=== PATIENT | male | born 1990 | race Caucasian/White ===

== ENCOUNTER 2016-08-07 20:49 | Emergency (ER) | payer OTHER ==
[2016-08-07 22:12] LABS: SPECIFIC GRAVITY 1.025 (1.001-1.030); URINE BILIRUBIN NEGATIVE (NEGATIVE); URINE BLOOD NEGATIVE (NEGATIVE); URINE GLUCOSE (UA) NEGATIVE (NEGATIVE); URINE LEUKOCYTE ESTERASE NEGATIVE (NEGATIVE); URINE NITRITE NEGATIVE (NEGATIVE); URINE PROTEIN TRACE (NEGATIVE); URINE UROBILINOGEN 1 mg/dL (0-1 mg/dl)
[2016-08-07 22:13] LABS: URINE APPEARANCE CLEAR; URINE COLOR AMBER
[2016-08-08 00:22] LABS: AMPHETAMINES/METHAMPHETAMINES POSITIVE (NEGATIVE); COCAINE NEGATIVE (NEGATIVE); MARIJUANA NEGATIVE (NEGATIVE); METHADONE NEGATIVE (NEGATIVE); OPIATES NEGATIVE (NEGATIVE); TRICYCLIC ANTIDEPRESSANTS NEGATIVE (NEGATIVE)
[2016-08-08] MEDS ORDERED: IBUPROFEN 800 MG TABLET ONE (00:32)
[2016-08-08] MEDS ORDERED: FLUCONAZOLE 150 MG TABLET ONE (00:32)
== END 2016-08-08 00:46 | disposition home or self-care (01) ==
LOC: ED 20:49
DX: L98.9 Disorder of the skin and subcutaneous tissue, unspecified (principal); K58.9 Irritable bowel syndrome, unspecified; F17.210 Nicotine dependence, cigarettes, uncomplicated; Z79.899 Other long term (current) drug therapy; Z88.0 Allergy status to penicillin; Z88.8 Allergy status to other drugs, medicaments and biological substances
CPT/HCPCS: 87070; 80305; 81003; 99283 ×2; A9270 ×2